=== PATIENT | male | born 1975 ===

== ENCOUNTER → 2018-10-09 | Outpatient (REF) ==
[2018-10-09 17:16] LABS: SOURCE, BODY FLUID RT ELBOW; SYNOVIAL FLUID COLOR RED (YELLOW)
[2018-10-09 17:49] LABS: CRYSTALS, BODY FLUID NONE SEEN (NONE SEEN); SOURCE, BODY FLUID CRYSTALS RT ELBOW
== END ==
LOC: M LAB REF 15:53
PROVIDERS: ATTEND Physician Assistant
DX: Z00.00 Encounter for general adult medical examination without abnormal findings (principal)